=== PATIENT | female | born 1935 | race Caucasian/White ===

== ENCOUNTER 2017-05-16 05:48 | Day surgery (SDC) | payer MEDICARE ==
[2017-05-16] MEDS ORDERED: Ketamine HCl 50 MG/ML IV ONE (05:49)
[2017-05-16] MEDS ORDERED: DIPRIVAN 200 MG/20 ML IV ONE (05:49)
[2017-05-16] MEDS ORDERED: Lactated Ringers 1,000 ML IV ONE (06:29)
[2017-05-16] MEDS ORDERED: Lactated Ringers 1,000 ML IV SCH (07:00)
--- NOTE | 2017-05-16 10:08 | OP ---
SURGERY DATE/TIME: 05/16/2017 0748 PREOPERATIVE DIAGNOSIS: Epigastric pain. POSTOPERATIVE DIAGNOSIS: Mild gastritis. PROCEDURE: Esophagogastroduodenoscopy with biopsy. SURGEON: Dr. Pearce. ANESTHESIA: Medications were given by the anesthesia department. BRIEF HISTORY: The patient is an 82 year old white female patient presenting for epigastric pain. She was felt the need to have endoscopic evaluation. She was appraised of the risks of the procedure including the risk of perforation, phlebitis, untoward reaction to medication, bleeding and missed lesions. The patient verbalized her understanding and desired to have the procedure performed. DESCRIPTION OF PROCEDURE: The patient was given the medications by the anesthesia department. She had continuous pulse oximetry, ECG monitoring, intermittent blood pressure monitoring and tidal CO2 monitoring during the examination. She was placed in the left lateral decubitus position. A bite block was placed. The flexible Olympus gastroscope was used to intubate the oropharynx. A view of the esophagus was developed and was normal throughout its length. The stomach was entered where normal gastric rugal folds were seen and these distended nicely with insufflation of air. The scope was passed along the greater curvature of the stomach to the antrum. The pylorus was encountered and intubated. The duodenum inspected and found to be mildly erythematous but otherwise normal. The scope was withdrawn towards the stomach. A retroflex view was obtained of the lesser curvature, fundus and cardia regions of the stomach and these appeared to be normal. The scope was then redirected towards the gastric antrum. Biopsies were obtained to rule out the presence of Helicobacter pylori-type organisms. The scope was then removed from the patient who tolerated the procedure well and was sent back to outpatient recovery in good condition.
[2017-05-16 10:16] VITALS: BP 145/63; PULSE 67; O2SAT 97
== END 2017-05-16 09:40 | disposition home or self-care (01) ==
LOC: SDC 05:48
PROVIDERS: ATTEND Family Medicine
PROC: 0DB78ZX Excision of Stomach, Pylorus, Via Natural or Artificial Opening Endoscopic, Diagnostic (ICD-10-PCS; principal; 2017-05-16)
DX: K29.70 Gastritis, unspecified, without bleeding (principal); I10 Essential (primary) hypertension; E78.5 Hyperlipidemia, unspecified; K21.9 Gastro-esophageal reflux disease without esophagitis
CPT/HCPCS: 00740; 36415; 88305; 99100; J2704

== ENCOUNTER 2017-07-12 14:47 | Observation (INO) | payer MEDICARE ==
[2017-07-12] MEDS ORDERED: NovoLOG Insulin SQ PRN (15:17)
[2017-07-12] MEDS ORDERED: MORPHINE SULFATE 4 MG INJ IV PRN (15:19)
[2017-07-12] MEDS ORDERED: Zofran 4 MG/2 ML VIAL IV PRN (15:19)
[2017-07-12] MEDS: Sodium Chloride 0.9% 1000 ML 1,000 ML IV SCH (15:43)
[2017-07-12] MEDS: Protonix 40MG Tablet PO SCH (15:46)
[2017-07-12] MEDS ORDERED: NON-FORMULARY ITEM (Benazepril Hcl [Lotensin] 40 MG) PO SCH (22:00)
[2017-07-12] MEDS: Lotensin 10 MG PO SCH (22:02)
[2017-07-13] MEDS: Sodium Chloride 0.9% 1000 ML 1,000 ML IV SCH ×3 (01:24→18:40)
[2017-07-13 06:02] LABS: Mean Cell Volume 92.8 fl (78-100); Mean Corpuscular Hemoglobin 29.4 pg (26-32); Mean Platelet Volume 11.1 fl (6-9.5); Platelet Count 225 K/mm3 (150-450); Red Blood Count 4.15 M/mm3 (4.1-5.4); Red Cell Distribution Width 13.8 % (11.5-14.0); White Blood Count 7.9 K/mm3 (4.0-10.5)
[2017-07-13 06:26] LABS: ALBUMIN 3.2 g/dL (3.4-5.0); ALKALINE PHOSPHATASE 98 U/L (46-116); ANION GAP 11.7 MEQ/L (5-15); BLOOD UREA NITROGEN 10 mg/dL (9-20); CHLORIDE 109 mEq/L (98-107); Carbon Dioxide 26.2 mEq/L (21-32); Glucose 106 MG/DL (70-110); LIPASE 1434 U/L (73-393); SGOT/AST 37 U/L (15-37); SGPT/ALT 76 U/L (12-78); SODIUM 143 mEq/L (136-145); Total Protein 6.6 gm/dL (6.4-8.2)
[2017-07-13] MEDS ORDERED: Sodium Chloride 0.9% 500 ML 500 ML IV SCH ×3 (08:30→17:00)
--- NOTE | 2017-07-13 08:33 | PCM.NOTE ---
Date and Time: 07/13/17 08 Subjective Assessment: Admitted from office yesterday after seeing that her LFTs and lipase were elevated. This morning her pain is much better, she has no pain right now in fact. Has not eaten yet; has no appetite but wants to try some food. C/o leg cramps last night. - Review of Systems Constitutional: No Fever Musculoskeletal: Other (leg cramps) Objective Exam General Appearance: no apparent distress, alert Neurologic Exam: oriented x 3, cooperative Skin Exam: normal color, warm, dry Respiratory Exam: normal breath sounds, lungs clear, No crackles/rales, No rhonchi, No wheezing Cardiovascular Exam: regular rate/rhythm, normal heart sounds, No murmur Gastrointestinal/Abdomen Exam: soft, normal bowel sounds, No tenderness, No distention, No mass Extremity Exam: No pedal edema, No swelling OBJECTIVE DATA Vital Signs: Vital Signs - 24 hr Temp Pulse Resp BP Pulse Ox 07/13/17 07:15 97.8 F 80 18 114/55 96 07/13/17 04:00 97.9 F 67 18 168/75 97 07/13/17 00:00 97.4 F 65 16 175/73 94 L 07/12/17 20:09 97.9 F 56 L 18 168/72 95 07/12/17 16:17 97.6 F 58 L 16 150/70 93 L 07/12/17 15:03 97.5 F 62 145/64 07/12/17 15:02 97.5 F 62 16 145/64 96 07/12/17 15:01 97.5 F 62 16 145/64 96 Pain Assessment - Last Documented Pain Scale Used 0-10 Pain Scale Intake and Output: Intake & Output 07/10/17 07/11/17 07/12/17 07/13/17 11:59 11:59 11:59 11:59 Intake Total 680 Output Total 1700 Balance -1020 Weight 65.726 kg Lab Results: Accuchecks Date 07/12/17 Date 07/12/17 Time 22:00 Time 16:30 Accucheck Value: 92 Accucheck Value: 131 Lab Results-Last 24 Hours 07/13/17 07/13/17 07/13/17 Range/Units 05:35 05:35 05:35 WBC 7.9 (4.0-10.5) K/mm3 RBC 4.15 (4.1-5.4) M/mm3 Hgb 12.2 (12.0-16.0) gm/dl Hct 38.5 (35-47) % MCV 92.8 (78-100) fl MCH 29.4 (26-32) pg MCHC 31.7 L (32-36) g/dl RDW 13.8 (11.5-14.0) % Plt Count 225 (150-450) K/mm3 MPV 11.1 H (6-9.5) fl Sodium 143 (136-145) mEq/L Potassium 4.0 (3.5-5.1) mEq/L Chloride 109 H (98-107) mEq/L Carbon Dioxide 26.2 (21-32) mEq/L Anion Gap 11.7 (5-15) MEQ/L BUN 10 (9-20) mg/dL Creatinine 0.91 (0.55-1.30) mg/dl Estimated GFR > 60 ML/MIN Glucose 106 (70-110) MG/DL Hemoglobin A1c 6.0 (4.5-6.2) Calcium 9.1 (8.5-10.1) mg/dL Total Bilirubin 0.50 (0.2-1.0) mg/dL AST 37 (15-37) U/L ALT 76 (12-78) U/L Alkaline Phosphatase 98 (46-116) U/L Serum Total Protein 6.6 (6.4-8.2) gm/dL Albumin 3.2 L (3.4-5.0) g/dL Amylase 138 H (25-115) U/L Lipase 1434 H (73-393) U/L Radiology Exams: Radiology Procedures Category Date Time Status ABDOMEN AND PELVIS W&WO CONTRA [CT] Routine Exams 07/12/17 16:00 Taken Assessment/Plan (1) Pancreatitis Current Visit: Yes Status: Acute Qualifiers: Chronicity: acute Pancreatitis type: biliary Acute pancreatitis complication: no infection or necrosis Qualified Code(s): K85.10 - Biliary acute pancreatitis without necrosis or infection Assessment & Plan: She has a history of gallstone removed post cholecystectomy (in 2008 at [facility]). She says these symtpoms are very similar. On CT her duct was enlarged. This morning her lipase is higher - will give bolus 500 cc NS x 3 throughout the day today and recheck labs in a.m. If she tolerated po very well and felt great she may be able to d/c home and f/u withoutpatient labs, but I think she will likely need to stay another day. Code(s): K85.90 - ACUTE PANCREATITIS WITHOUT NECROSIS OR INFECTION, UNSP (2) Vomiting Current Visit: Yes Status: Resolved Qualifiers: Vomiting type: unspecified Vomiting Intractability: non-intractable Nausea presence: with nausea Qualified Code(s): R11.2 - Nausea with vomiting, unspecified Code(s): R11.10 - VOMITING, UNSPECIFIED (3) Elevated liver enzymes Current Visit: Yes Status: Acute Assessment & Plan: Improved and nl this morning. Code(s): R74.8 - ABNORMAL LEVELS OF OTHER SERUM ENZYMES
--- NOTE | 2017-07-13 08:44 | XRAY ---
Indication: Abdominal pain after eating. Nausea and vomiting. Multiple contiguous axial images obtained through the abdomen and pelvis prior to and following 80 cc Isovue 370 contrast. Enteric contrast also given. Comparison: April 23, 2009. Lung bases demonstrate stable bibasilar calcified granuloma and minimal fibrosis/scarring. No infiltrate or effusion. Heart is not enlarged. There is now small hiatal hernia. Images through the pelvis are again limited due to extreme beam artifact from bilateral hip prostheses. Noncontrasted images through the abdomen demonstrates tiny calcified splenic granuloma. No pathologic visceral calcifications/calculi. Contrasted stomach and bowel loops appear nonobstructed. Minimal sigmoid diverticulosis. Again previous reported appendectomy and cholecystectomy. Biliary tree remains distended with the common bile duct up to 17 mm. Postcontrast images demonstrates normal visceral enhancement and renal excretion. Interval enlarging right lower pole simple cyst today measuring 8.2 cm in greatest axial dimension, previously 5.5 cm. No solid renal mass, hydronephrosis, or hydroureter. Remaining liver, pancreas, spleen, adrenal glands, kidneys, ureters, bladder, and uterus appear unremarkable. There remains moderate aortoiliac calcifications. No AAA or pathologic retroperitoneal lymphadenopathy. Osseous structures intact again with moderate degenerative changes throughout the spine. Stable tiny fatty supraumbilical ventral hernia. Impression: 1. New hiatal hernia. 2. Stable biliary tree distention with cholecystectomy. 3. Enlarging simple appearing right renal cyst. 4. Stable sigmoid diverticulosis and tiny fatty ventral hernia. CT DI 20.85
[2017-07-13] MEDS: Imdur 30 MG PO SCH (08:57)
[2017-07-13] MEDS: Protonix 40MG Tablet PO SCH (08:57)
[2017-07-13] MEDS: Toprol Xl 50 MG PO SCH (08:58)
[2017-07-13] MEDS: NORVASC 5 MG PO SCH (08:58)
[2017-07-13] MEDS: Lotensin 10 MG PO SCH ×2 (08:58→21:18)
[2017-07-14] MEDS: Sodium Chloride 0.9% 1000 ML 1,000 ML IV SCH (04:37)
[2017-07-14 04:48] VITALS: O2SAT 94
[2017-07-14 05:27] LABS: Mean Cell Volume 92.6 fl (78-100); Mean Corpuscular Hemoglobin 29.7 pg (26-32); Mean Platelet Volume 10.9 fl (6-9.5); Platelet Count 235 K/mm3 (150-450); Red Blood Count 4.45 M/mm3 (4.1-5.4); Red Cell Distribution Width 13.9 % (11.5-14.0); White Blood Count 8.4 K/mm3 (4.0-10.5)
[2017-07-14 05:48] LABS: ALBUMIN 3.5 g/dL (3.4-5.0); ALKALINE PHOSPHATASE 106 U/L (46-116); ANION GAP 12.1 MEQ/L (5-15); BLOOD UREA NITROGEN 6 mg/dL (9-20); CHLORIDE 108 mEq/L (98-107); Carbon Dioxide 26.9 mEq/L (21-32); Glucose 111 MG/DL (70-110); LIPASE 933 U/L (73-393); Potassium 4.1 mEq/L (3.5-5.1); SGOT/AST 39 U/L (15-37); SGPT/ALT 73 U/L (12-78); SODIUM 143 mEq/L (136-145); Total Protein 7.3 gm/dL (6.4-8.2)
--- NOTE | 2017-07-14 05:57 | PCM.DS ---
Discharge Summary Date of Admission: 07/12/17 14:47 Date of Discharge: 07/14/17 Admitting Physician: KENYETTA HARRISON Primary Care Provider: KENYETTA HARRISON Allergies Allergies NSAIDS (Non-Steroidal Anti-Inflamma Allergy (Verified 05/11/17 15:41) sulfacetamide [From Sulfamide] Allergy (Verified 05/11/17 15:41) Hospital Summary - Hospital Course Hospital Course: presented to office with abd pain and found to have pancreatitis with concern for choledocholithiasis causing the pancreatitis. She has history of stone removal after a cholecystectomy in the past. After arrival at hospital however and getting iv hydration her pain and nausea have resolved and she is tolerating po. Her lipase and lft's are improving and she really wants discharged to home because she states she is feeling much better. We discussed concern for possible bile duct stone vs ampullary stenosis resulting in the pancreatitis but with improvign symptoms will d/c to home and f /u outpatient with gastroenterology for consideration at [facility] vs [facility] if having recurrent symptoms and f/u liver enzymes. - Vitals & Intake/Output Vital Signs: Vital Signs Temperature 99.5 F 07/14/17 04:00 Pulse Rate 67 07/14/17 04:00 Respiratory Rate 16 07/14/17 04:00 Blood Pressure 186/84 07/14/17 04:00 O2 Sat by Pulse Oximetry 94 L 07/14/17 04:00 Intake & Output: Intake & Output 07/11/17 07/12/17 07/13/17 07/14/17 11:59 11:59 11:59 11:59 Intake Total 1040 1500 Output Total 2800 3950 Balance -1760 -2450 Weight 65.726 kg - Lab Result Diagrams: 07/14/17 05:15 07/14/17 05:15 Lab Results-Last 24 Hrs: Accuchecks Date 07/13/17 Date 07/13/17 Date 07/13/17 Date 07/13/17 Time 16:30 Time 11:30 Time 07:30 Accucheck Value: 86 Accucheck Value: 93 Accucheck Value: 94 Lab Results-Last 24 Hours 07/13/17 07/13/17 07/13/17 Range/Units 05:35 05:35 05:35 WBC 7.9 (4.0-10.5) K/mm3 RBC 4.15 (4.1-5.4) M/mm3 Hgb 12.2 (12.0-16.0) gm/dl Hct 38.5 (35-47) % MCV 92.8 (78-100) fl MCH 29.4 (26-32) pg MCHC 31.7 L (32-36) g/dl RDW 13.8 (11.5-14.0) % Plt Count 225 (150-450) K/mm3 MPV 11.1 H (6-9.5) fl Sodium 143 (136-145) mEq/L Potassium 4.0 (3.5-5.1) mEq/L Chloride 109 H (98-107) mEq/L Carbon Dioxide 26.2 (21-32) mEq/L Anion Gap 11.7 (5-15) MEQ/L BUN 10 (9-20) mg/dL Creatinine 0.91 (0.55-1.30) mg/dl Estimated GFR > 60 ML/MIN Glucose 106 (70-110) MG/DL Hemoglobin A1c 6.0 (4.5-6.2) Calcium 9.1 (8.5-10.1) mg/dL Total Bilirubin 0.50 (0.2-1.0) mg/dL AST 37 (15-37) U/L ALT 76 (12-78) U/L Alkaline Phosphatase 98 (46-116) U/L Serum Total Protein 6.6 (6.4-8.2) gm/dL Albumin 3.2 L (3.4-5.0) g/dL Amylase 138 H (25-115) U/L Lipase 1434 H (73-393) U/L 07/14/17 07/14/17 Range/Units 05:15 05:15 WBC 8.4 (4.0-10.5) K/mm3 RBC 4.45 (4.1-5.4) M/mm3 Hgb 13.2 (12.0-16.0) gm/dl Hct 41.2 (35-47) % MCV 92.6 (78-100) fl MCH 29.7 (26-32) pg MCHC 32.0 (32-36) g/dl RDW 13.9 (11.5-14.0) % Plt Count 235 (150-450) K/mm3 MPV 10.9 H (6-9.5) fl Sodium 143 (136-145) mEq/L Potassium 4.1 (3.5-5.1) mEq/L Chloride 108 H (98-107) mEq/L Carbon Dioxide 26.9 (21-32) mEq/L Anion Gap 12.1 (5-15) MEQ/L BUN 6 L (9-20) mg/dL Creatinine 0.89 (0.55-1.30) mg/dl Estimated GFR > 60 ML/MIN Glucose 111 H (70-110) MG/DL Hemoglobin A1c (4.5-6.2) Calcium 9.4 (8.5-10.1) mg/dL Total Bilirubin 0.60 (0.2-1.0) mg/dL AST 39 H (15-37) U/L ALT 73 (12-78) U/L Alkaline Phosphatase 106 (46-116) U/L Serum Total Protein 7.3 (6.4-8.2) gm/dL Albumin 3.5 (3.4-5.0) g/dL Amylase (25-115) U/L Lipase 933 H (73-393) U/L Micro Results-Entire Visit: Accuchecks Date 07/13/17 Date 07/13/17 Date 07/13/17 Date 07/13/17 Time 16:30 Time 11:30 Time 07:30 Accucheck Value: 86 Accucheck Value: 93 Accucheck Value: 94 - Radiology Exams Ordered Rad Exams-Entire Visit: Radiology Procedures Category Date Time Status ABDOMEN AND PELVIS W&WO CONTRA [CT] Routine Exams 07/12/17 16:00 Completed Discharge Exam General Appearance: no apparent distress, alert, obese Neurologic Exam: alert, oriented x 3, cooperative, normal mood/affect, nml cerebellar function, sensation nml, No motor deficits Skin Exam: normal color, warm, dry Eye Exam: PERRL, EOMI, eyes nml inspection Ears, Nose, Throat Exam: normal ENT inspection, pharynx normal, moist mucous membranes Neck Exam: normal inspection, non-tender, supple, full range of motion Respiratory Exam: normal breath sounds, lungs clear, No respiratory distress Cardiovascular Exam: regular rate/rhythm, normal heart sounds Gastrointestinal/Abdomen Exam: soft, No tenderness, No mass Extremity Exam: normal inspection, normal range of motion Back Exam: normal inspection, normal range of motion, No CVA tenderness, No vertebral tenderness Pelvic Exam: deferred Rectal Exam: deferred Final Diagnosis/Problem List - Final Discharge Diagnosis/Problem (1) Elevated liver enzymes Status: Acute (2) Pancreatitis Status: Acute (3) Vomiting Status: Resolved - Discharge Discharge Date: 07/14/17 Disposition: Home, Self-Care Condition: Stable Prescriptions: New PANTOPRAZOLE 40 mg Tablet [Protonix 40MG Tablet] 40 mg PO DAILY #30 tab Continue Multivitamin [Daily Multivitamin] 1 tab PO DAILY Magnesium Oxide 400 mg [Mag-Ox 400] 400 mg PO BID Benazepril HCl [Lotensin] 40 mg PO BID Isosorbide Mononitrate 30 mg [Imdur 30 MG] 15 mg PO DAILY Metoprolol Succinate 50 mg [Toprol Xl 50 MG] 50 mg PO DAILY Furosemide [Lasix] 20 mg PO BID Rosuvastatin Calcium [Crestor] 10 mg PO 2XW Amlodipine Besylate [Norvasc] 5 mg PO DAILY Instructions: Pancreatitis Additional Instructions: ok for home after breakfast if pain stays resolved and nausea continues to be controlled Follow up with: KENYETTA HARRISON [Primary Care Provider] - 07/24/17 10:45 am CARLITOS VALDEZ MD [NON-STAFF PHY W/O PRIVILEGES] - 1 Week ([phone]) Forms: Discharge Instructions
[2017-07-14 07:50] VITALS: BP 189/77; PULSE 73
[2017-07-14] MEDS: Protonix 40MG Tablet PO SCH (10:01)
[2017-07-14] MEDS: NORVASC 5 MG PO SCH (10:01)
[2017-07-14] MEDS: Imdur 30 MG PO SCH (10:01)
[2017-07-14] MEDS: Toprol Xl 50 MG PO SCH (10:01)
[2017-07-14] MEDS: Lotensin 10 MG PO SCH (10:01)
== END 2017-07-14 11:00 | disposition home or self-care (01) ==
LOC: MED SURG 14:47
PROVIDERS: ADMIT Family Medicine; ATTEND Family Medicine
DX: R74.8 Abnormal levels of other serum enzymes (principal); K85.90 Acute pancreatitis without necrosis or infection, unspecified; R11.10 Vomiting, unspecified; R25.2 Cramp and spasm; E11.9 Type 2 diabetes mellitus without complications
CPT/HCPCS: 36415; 74178; 80053; 82150; 82962; 83036; 83690; 85027; G0378; A9270-GY

== ENCOUNTER 2021-07-18 12:52 | Emergency (ER) | payer MEDICARE ==
[2021-07-18] MEDS ORDERED: Zofran 4 MG/2 ML VIAL IV ONE (13:28)
[2021-07-18] MEDS ORDERED: MORPHINE SULFATE 2 MG INJ IV ONE (13:28)
--- NOTE | 2021-07-18 13:28 | ERPHSYRPT ---
- History of Present Illness Time Seen by Provider: 07/18/21 13:15 Historian: patient, EMS Exam Limitations: no limitations Patient Subjective Stated Complaint: abd pain, NV x 1 episode Triage Nursing Assessment: pt to ED by EMS c/o epigastric pain and NV x 1 episode today. reports pain began after eating small breakfast. states "I dont have much pain now that I got to throw that up." epigastric region tender to palp on assessment. denies urinary problems, LBM yesterday which was normal to pt. Physician History: This is an 86-year-old white female patient of Dr. Oli Madrid who has a history of hypertension, gastroesophageal reflux disease and elevated cholesterol who was feeling fine until after eating a small breakfast of a roll this morning when she began to experience epigastric abdominal discomfort and associated vomiting x1. She denies chest pain. She states that she is never had this before. She did take her medications this morning. Patient was brought into the emergency department by EMS service. She denies fever. She denies diarrhea. Patient has had a cholecystectomy in the past. Timing/Duration: today Quality: aching Abdominal Pain Onset Location: epigastric Pain Radiation: no radiation Severity of Pain-Max: moderate Severity of Pain-Current: mild Modifying Factors: Improves With: nothing Associated Symptoms: nausea, vomiting Previous symptoms: no prior history Allergies/Adverse Reactions: NSAIDS (Non-Steroidal Anti-Inflamma Allergy (Verified 07/18/21 13:05) sulfacetamide [From Sulfamide] Allergy (Verified 07/18/21 13:05) Home Medications: Benazepril HCl [Lotensin] 40 mg PO BID 09/07/14 [History] Furosemide [Lasix] 20 mg PO BID 09/07/14 [History] Isosorbide Mononitrate 30 mg [Imdur 30 MG] 15 mg PO DAILY 09/07/14 [History] Magnesium Oxide 400 mg [Mag-Ox 400] 400 mg PO BID 09/07/14 [History] Metoprolol Succinate 50 mg [Toprol Xl 50 MG] 50 mg PO DAILY 09/07/14 [History] Multivitamin [Daily Multivitamin] 1 tab PO DAILY 09/07/14 [History] Rosuvastatin Calcium [Crestor] 10 mg PO 2XW 05/11/17 [History] Amlodipine Besylate [Norvasc] 5 mg PO DAILY 07/12/17 [History] Hx Tetanus, Diphtheria Vaccination/Date Given: Yes Hx Influenza Vaccination/Date Given: Yes Hx Pneumococcal Vaccination/Date Given: No Immunizations Up to Date: Yes Travel Risk - International Travel Have you traveled outside of the country in past 3 weeks: No - Coronavirus Screening Are you exhibiting any of the following symptoms?: Yes Symptoms: Vomiting/Diarrhea Close contact with a COVID-19 positive Pt in past 14-21 Days: No - Vaccine Status Have you recieved a Covid-19 vaccination: Yes Special Crimes Investigator: Moderna - Vaccination Dates Date of 2cond Vaccination (if applicable): Oct - Review of Systems Constitutional: No Symptoms Eyes: No Symptoms Ears, Nose, & Throat: No Symptoms Respiratory: No Symptoms Cardiac: No Symptoms Abdominal/Gastrointestinal: Abdominal Pain, Nausea, Vomiting, No Diarrhea Genitourinary Symptoms: No Symptoms (Epigastric) Musculoskeletal: No Symptoms Skin: No Symptoms Neurological: No Symptoms Psychological: No Symptoms Endocrine: No Symptoms Hematologic/Lymphatic: No Symptoms Immunological/Allergic: No Symptoms All Other Systems: Reviewed and Negative - Past Medical History Pertinent Past Medical History: Yes Neurological History: No Pertinent History ENT History: Cataracts Cardiac History: High Cholesterol, Hypertension Respiratory History: No Pertinent History Endocrine Medical History: No Pertinent History Musculoskeletal History: Fractures GI Medical History: GERD History: No Pertinent History Psycho-Social History: No Pertinent History Female Reproductive Disorders: No Pertinent History Other Medical History: B ALIYA - Past Surgical History Past Surgical History: Yes Neuro Surgical History: No Pertinent History Cardiac: No Pertinent History Respiratory: No Pertinent History Gastrointestinal: Appendectomy, Cholecystectomy Genitourinary: Other Musculoskeletal: Orthopedic Surgery Female Surgical History: No Pertinent History Other Surgical History: SALVADOR CATARACT SURGERY. COLON REDUCTION. BLADDER PATCH. BOTH HIPS REPLACED - Social History Smoking Status: Never smoker Exposure to second hand smoke: No Drug Use: none Patient Lives Alone: Yes - Female History Hx Now: No - Nursing Vital Signs Nursing Vital Signs: Initial Vital Signs Temperature 96.7 F 07/18/21 12:54 Pulse Rate 56 L 07/18/21 12:54 Respiratory Rate 20 07/18/21 12:54 Blood Pressure 115/59 07/18/21 12:54 O2 Sat by Pulse Oximetry 99 07/18/21 12:54 Pain Scale Pain Intensity 1 - Physical Exam General Appearance: no apparent distress Eye Exam: PERRL/EOMI, eyes nml inspection Ears, Nose, Throat Exam: normal ENT inspection, moist mucous membranes Neck Exam: normal inspection, non-tender, supple, full range of motion Respiratory Exam: normal breath sounds, lungs clear, airway intact, No chest tenderness, No respiratory distress Cardiovascular Exam: regular rate/rhythm, normal heart sounds, normal peripheral pulses Gastrointestinal/Abdomen Exam: soft, normal bowel sounds, tenderness, guarding (Epigastric area with palpation epigastric area with palpation), No rebound Pelvic Exam: not done Rectal Exam: not done Back Exam: normal inspection, normal range of motion, No CVA tenderness, No vertebral tenderness Extremity Exam: normal inspection, normal range of motion, pelvis stable Neurologic Exam: alert, oriented x 3, cooperative, powdered sugar supervisor II-XII nml as tested, normal mood/affect, nml cerebellar function, nml station & gait, sensation nml Skin Exam: normal color, warm, dry Lymphatic Exam: No adenopathy SpO2 Interpretation: normal SpO2: 99 O2 Delivery: Room Air - Course Nursing assessment & vital signs reviewed: Yes EKG Interpreted by Me: RATE (66), Sinus Rhythm, NORMAL AXIS, Left Bundle Branch Block, Other (Prolonged MD interval. No comparison EKG available. There is no acute ischemic changes on today's EKG.) Ordered Tests: Active Orders 24 hr Category Date Time Status EKG-ER Only STAT Care 07/18/21 13:28 Active IV Insertion STAT Care 07/18/21 13:28 Active ABDOMEN AND PELVIS W/0 CONTRAS [CT] Stat Exams 07/18/21 13:28 Taken AMYLASE Stat Lab 07/18/21 13:30 Completed CBC W DIFF Stat Lab 07/18/21 13:30 Completed CMP Stat Lab 07/18/21 13:30 Completed LIPASE Stat Lab 07/18/21 13:30 Completed Lactic Acid Stat Lab 07/18/21 13:33 Completed Lactic Acid Stat Lab 07/18/21 15:39 Received TROPONIN Q3H Lab 07/18/21 13:30 Completed TROPONIN Q3H Lab 07/18/21 16:30 Ordered TROPONIN Q3H Lab 07/18/21 19:30 Ordered TROPONIN Q3H Lab 07/18/21 22:30 Ordered TROPONIN Q3H Lab 07/19/21 01:30 Ordered UA W/RFX UR CULTURE Stat Lab 07/18/21 13:30 Completed Medication Summary Generic Name Dose Route Start Last Admin Trade Name Marta PRN Reason Stop Dose Admin Sodium Chloride 1,000 mls @ 250 mls/hr 07/18/21 13:30 07/18/21 13:34 Sodium Chloride 0.9% 1000 Ml IV 08/17/21 13:29 250 mls/hr .Q4H SERJIO Administration Discontinued Medications Generic Name Dose Route Start Last Admin Trade Name Marta PRN Reason Stop Dose Admin Morphine Sulfate 2 mg 07/18/21 13:28 07/18/21 13:37 Morphine Sulfate 2 Mg/Ml Inj IV 07/18/21 13:29 2 mg STAT ONE Administration Morphine Sulfate Confirm 07/18/21 13:32 Morphine Sulfate 2 Mg/Ml Inj Administered 07/18/21 13:33 Dose 2 mg .ROUTE .STK-MED ONE Ondansetron HCl 4 mg 07/18/21 13:28 07/18/21 13:36 Ondansetron Hcl 4 Mg/2 Ml Vial IV 07/18/21 13:29 4 mg STAT ONE Administration Ondansetron HCl Confirm 07/18/21 13:32 Ondansetron Hcl 4 Mg/2 Ml Vial Administered 07/18/21 13:33 Dose 4 mg .ROUTE .STK-MED ONE Lab/Rad Data: Laboratory Result Diagrams 07/18/21 13:30 07/18/21 13:30 Laboratory Results 07/18/21 07/18/21 07/18/21 Range/Units 13:33 13:30 13:30 WBC (4.0-10.5) K/mm3 RBC (4.1-5.4) M/mm3 Hgb (12.0-16.0) gm/dl Hct (35-47) % MCV (78-100) fl MCH (26-32) pg MCHC (32-36) g/dl RDW (11.5-14.0) % Plt Count (150-450) K/mm3 MPV (7.5-11.0) fl Gran % (36.0-66.0) % Eos # (Auto) (0-0.5) Absolute Lymphs (auto) (1.0-4.6) Absolute Monos (auto) (0.0-1.3) Lymphocytes % (24.0-44.0) % Monocytes % (0.0-12.0) % Eosinophils % (0.00-5.0) % Basophils % (0.0-0.4) % Absolute Granulocytes (1.4-6.9) Basophils # (0-0.4) Sodium 141 (137-145) mmol/L Potassium 4.3 (3.5-5.1) mmol/L Chloride 104 (98-107) mmol/L Carbon Dioxide 25 (22-30) mmol/L Anion Gap 16.4 H (5-15) MEQ/L BUN 26 H (7-17) mg/dL Creatinine 0.86 (0.52-1.04) mg/dL Estimated GFR > 60.0 ML/MIN Glucose 138 H (74-106) mg/dL Lactic Acid 2.1 H (0.4-2.0) Calcium 10.6 H (8.4-10.2) mg/dL Total Bilirubin 0.60 (0.2-1.3) mg/dL AST 76 H (14-36) U/L ALT 32 (0-35) U/L Alkaline Phosphatase 79 (38-126) U/L Troponin I < 0.012 (0.000-0.034) ng/mL Serum Total Protein 7.2 (6.3-8.2) g/dL Albumin 4.2 (3.5-5.0) g/dL Amylase 69 (30-110) U/L Lipase 174 (23-300) U/L Urine Color (YELLOW) Urine Appearance (CLEAR) Urine pH (5-6) Ur Specific [place] (1.005-1.025) Urine Protein (Negative) Urine Ketones (NEGATIVE) Urine Blood (0-5) Arie/ul Urine Nitrite (NEGATIVE) Urine Bilirubin (NEGATIVE) Urine Urobilinogen (0-1) mg/dL Ur Leukocyte Esterase (NEGATIVE) Urine WBC (Auto) (0-5) /HPF Urine RBC (Auto) (0-2) /HPF U Epithel Cells (Auto) (FEW) /HPF Urine Bacteria (Auto) (NEGATIVE) /HPF Urine Mucus (Auto) (NEGATIVE) /HPF Urine Culture Reflexed (NO) Urine Glucose (NEGATIVE) mg/dL 07/18/21 07/18/21 Range/Units 13:30 13:30 WBC 13.0 H (4.0-10.5) K/mm3 RBC 4.54 (4.1-5.4) M/mm3 Hgb 13.6 (12.0-16.0) gm/dl Hct 42.6 (35-47) % MCV 93.8 (78-100) fl MCH 30.0 (26-32) pg MCHC 31.9 L (32-36) g/dl RDW 13.3 (11.5-14.0) % Plt Count 241 (150-450) K/mm3 MPV 11.1 H (7.5-11.0) fl Gran % 69.1 H (36.0-66.0) % Eos # (Auto) 0.24 (0-0.5) Absolute Lymphs (auto) 2.89 (1.0-4.6) Absolute Monos (auto) 0.81 (0.0-1.3) Lymphocytes % 22.3 L (24.0-44.0) % Monocytes % 6.3 (0.0-12.0) % Eosinophils % 1.9 (0.00-5.0) % Basophils % 0.4 (0.0-0.4) % Absolute Granulocytes 8.97 H (1.4-6.9) Basophils # 0.05 (0-0.4) Sodium (137-145) mmol/L Potassium (3.5-5.1) mmol/L Chloride (98-107) mmol/L Carbon Dioxide (22-30) mmol/L Anion Gap (5-15) MEQ/L BUN (7-17) mg/dL Creatinine (0.52-1.04) mg/dL Estimated GFR ML/MIN Glucose (74-106) mg/dL Lactic Acid (0.4-2.0) Calcium (8.4-10.2) mg/dL Total Bilirubin (0.2-1.3) mg/dL AST (14-36) U/L ALT (0-35) U/L Alkaline Phosphatase (38-126) U/L Troponin I (0.000-0.034) ng/mL Serum Total Protein (6.3-8.2) g/dL Albumin (3.5-5.0) g/dL Amylase (30-110) U/L Lipase (23-300) U/L Urine Color OMEGA (YELLOW) Urine Appearance CLOUDY (CLEAR) Urine pH 6.0 (5-6) Ur Specific [place] 1.021 (1.005-1.025) Urine Protein 30 (Negative) Urine Ketones NEGATIVE (NEGATIVE) Urine Blood NEGATIVE (0-5) Arie/ul Urine Nitrite NEGATIVE (NEGATIVE) Urine Bilirubin NEGATIVE (NEGATIVE) Urine Urobilinogen NEGATIVE (0-1) mg/dL Ur Leukocyte Esterase SMALL (NEGATIVE) Urine WBC (Auto) 3-5 (0-5) /HPF Urine RBC (Auto) 0-2 (0-2) /HPF U Epithel Cells (Auto) RARE (FEW) /HPF Urine Bacteria (Auto) NONE (NEGATIVE) /HPF Urine Mucus (Auto) SLIGHT (NEGATIVE) /HPF Urine Culture Reflexed NO (NO) Urine Glucose NEGATIVE (NEGATIVE) mg/dL - Progress Progress: improved, re-examined Progress Note: 07/18/21 15:11 CAT scan of the abdomen and pelvis without contrast shows no acute intra- abdominal or intrapelvic abnormality or process. 07/18/21 15:47 Patient states that she is feeling much better. Counseled pt/family regarding: lab results, diagnosis, need for follow-up, rad results - Departure Departure Disposition: Home Clinical Impression: Epigastric discomfort Condition: Stable Critical Care Time: No Referrals: KENYETTA LOPEZ [Primary Care Provider] - Additional Instructions: Drink plenty of clear liquids before advancing diet. Avoid fatty greasy spicy f oods. Call your primary care physician tomorrow morning to make arrangements for follow-up appointment. Take all your medications as prescribed. Prescriptions: Ondansetron ODT 4 MG [Zofran Odt 4 mg] 4 mg PO Q6H PRN PRN #10 tablet PRN Reason: Vomiting
[2021-07-18] MEDS ORDERED: Sodium Chloride 0.9% 1000 ML 1,000 ML IV SCH (13:30)
[2021-07-18] MEDS ORDERED: Sodium Chloride 0.9% 1000 ML 1,000 ML ONE (13:32)
[2021-07-18] MEDS ORDERED: Zofran 4 MG/2 ML VIAL ONE (13:32)
[2021-07-18] MEDS ORDERED: MORPHINE SULFATE 2 MG INJ ONE (13:32)
[2021-07-18 13:43] LABS: Absolute Neutrophil Ct (ANC) 8.97 (1.4-6.9); BASOPHIL % 0.4 % (0.0-0.4); Basophil (Absolute #) 0.05 (0-0.4); Eosinophil % 1.9 % (0.00-5.0); Eosinophil (Absolute #) 0.24 (0-0.5); Hematocrit 42.6 % (35-47); Hemoglobin 13.6 gm/dl (12.0-16.0); Lymphocyte (Absolute #) 2.89 (1.0-4.6); Lymphocytes % 22.3 % (24.0-44.0); Mean Cell Volume 93.8 fl (78-100); Mean Corpuscular Hgb Concent. 31.9 g/dl (32-36); Mean Platelet Volume 11.1 fl (7.5-11.0); Monocyte (Absolute #) 0.81 (0.0-1.3); Monocytes % 6.3 % (0.0-12.0); Neutrophil % 69.1 % (36.0-66.0); Platelet Count 241 K/mm3 (150-450); Red Blood Count 4.54 M/mm3 (4.1-5.4); Red Cell Distribution Width 13.3 % (11.5-14.0)
[2021-07-18 13:54] LABS: ALBUMIN 4.2 g/dL (3.5-5.0); ALKALINE PHOSPHATASE 79 U/L (38-126); AMYLASE 69 U/L (30-110); ANION GAP 16.4 MEQ/L (5-15); BLOOD UREA NITROGEN 26 mg/dL (7-17); CHLORIDE 104 mmol/L (98-107); Calcium 10.6 mg/dL (8.4-10.2); Carbon Dioxide 25 mmol/L (22-30); Creatinine 1 0.86 mg/dL (0.52-1.04); EST GLOMERULAR FILTRATION RATE > 60.0 ML/MIN; Glucose 138 mg/dL (74-106); LIPASE 174 U/L (23-300); Potassium 4.3 mmol/L (3.5-5.1); SGOT/AST 76 U/L (14-36); SGPT/ALT 32 U/L (0-35); SODIUM 141 mmol/L (137-145); Total Protein 7.2 g/dL (6.3-8.2)
[2021-07-18 15:30] LABS: Appearance CLOUDY (CLEAR); Bilirubin NEGATIVE (NEGATIVE); Blood NEGATIVE Ery/ul (0-5); Epithelial Cells RARE /HPF (FEW); Glucose NEGATIVE (NEGATIVE); Ketones NEGATIVE (NEGATIVE); Leukocyte Esterase SMALL (NEGATIVE); Mucus SLIGHT /HPF (NEGATIVE); Nitrite NEGATIVE (NEGATIVE); Protein,Urine Dip 30 (Negative); RBC 0-2 /HPF (0-2); Specific Gravity 1.021 (1.005-1.025); Urobilinogen NEGATIVE mg/dL (0-1)
[2021-07-18 15:52] VITALS: BP 116/68; PULSE 54; O2SAT 96
--- NOTE | 2021-07-18 18:41 | XRAY ---
Indication: Epigastric pain and vomiting. Multiple contiguous axial images obtained through the abdomen and pelvis without contrast. Comparison: July 12, 2017. Lung bases again demonstrates tiny calcified granuloma. No infiltrate or effusion. Heart not enlarged. Stable small hiatal hernia. Images through the pelvis again limited by extreme beam artifact from bilateral hip prostheses. Noncontrasted stomach and bowel loops remain nonobstructed. Again minimal sigmoid diverticulosis without diverticulitis. Stable tiny splenic calcified granulomas, large right renal cyst, appendectomy, and cholecystectomy. No free fluid/air. Remaining liver, pancreas, spleen, adrenal glands, kidneys, ureters, bladder, and aorta appear grossly unremarkable for noncontrast exam. Again mild scattered aortoiliac calcifications without AAA. Osseous structures intact again with osteopenia and mild/moderate degenerative changes throughout the thoracolumbar spine. Stable tiny fatty supraumbilical ventral hernia. Impression: 1. Stable small hiatal hernia, large right renal cyst, sigmoid diverticulosis, tiny fatty ventral hernia, chronic bony findings, and old granulomatous disease. 2. Remaining CT abdomen/pelvis without contrast exam is negative. Comment: Preliminary interpretation made by C. No critical discrepancy.
== END 2021-07-18 15:55 | disposition home or self-care (01) ==
LOC: ED 12:52
DX: R10.13 Epigastric pain (principal)
CPT/HCPCS: 36000; 36415; 74176; 80053; 81001; 82150; 83605; 83690; 84484; 85025; 93005; 96374; 96375; 99284; J2270; J2405

== ENCOUNTER 2022-01-07 10:48 | Emergency (ER) | payer MEDICARE ==
--- NOTE | 2022-01-07 11:52 | XRAY ---
Indication: Pain 3 weeks per no known injury. Comparison: None 3 portable views left knee demonstrates osteopenia, moderate tricompartmental degenerative changes, small nonspecific effusion, and moderate scattered vascular calcifications. No other bony, articular, or soft tissue abnormalities.
--- NOTE | 2022-01-07 11:52 | ERPHSYRPT ---
- History of Present Illness Source: patient, other (Daughter) Patient Subjective Stated Complaint: Left knee pain x1 week. Triage Nursing Assessment: AAox3, c/o left knee pain and swelling to medial aspect of knee for past approx week. Denies known injury. States fell asleep in chair 2 weeks ago and fell forward onto floor and states could be reason for knee pain. Denies other inuries. Increased to with wt bearing. Physician History: 86 yo wf w L knee pain x 1 week. Pt states that she had a ground level fall 2 wks ago, but the pain just started 1 wk ago. Pain is worse w weight bearing and is isolated to her knee joint. Although the knee is edematous, she has no calf/thigh pain/edema. Pt denies fever/chest pain/dyspnea. Method of Injury: fell (2 wks ago but pain just started 1 wk ago) Quality: aching Severity of Pain-Max: severe Severity of Pain-Current: moderate Lower Extremities Pain: knee: left Modifying Factors: Improves With: movement Associated Symptoms: other (Minimal weight bearing) Allergies/Adverse Reactions: NSAIDS (Non-Steroidal Anti-Inflamma Allergy (Verified 07/18/21 13:05) sulfacetamide [From Sulfamide] Allergy (Verified 07/18/21 13:05) Home Medications: Benazepril HCl [Lotensin] 40 mg PO BID 09/07/14 [History] Furosemide [Lasix] 20 mg PO BID 09/07/14 [History] Isosorbide Mononitrate 30 mg [Imdur 30 MG] 15 mg PO DAILY 09/07/14 [History] Magnesium Oxide 400 mg [Mag-Ox 400] 400 mg PO BID 09/07/14 [History] Metoprolol Succinate 50 mg [Toprol Xl 50 MG] 50 mg PO DAILY 09/07/14 [History] Multivitamin [Daily Multivitamin] 1 tab PO DAILY 09/07/14 [History] Rosuvastatin Calcium [Crestor] 10 mg PO 2XW 05/11/17 [History] Amlodipine Besylate [Norvasc] 5 mg PO DAILY 07/12/17 [History] Hx Tetanus, Diphtheria Vaccination/Date Given: No Hx Influenza Vaccination/Date Given: Yes Hx Pneumococcal Vaccination/Date Given: Yes Immunizations Up to Date: Yes Travel Risk - International Travel Have you traveled outside of the country in past 3 weeks: No - Coronavirus Screening Are you exhibiting any of the following symptoms?: No Close contact with a COVID-19 positive Pt in past 14-21 Days: No - Vaccine Status Have you recieved a Covid-19 vaccination: Yes Eeg Technician: Moderna - Vaccination Dates Date of 2cond Vaccination (if applicable): oct 2020 - Review of Systems Constitutional: No Symptoms Eyes: No Symptoms Ears, Nose, & Throat: No Symptoms Respiratory: No Symptoms Cardiac: No Symptoms Abdominal/Gastrointestinal: No Symptoms Genitourinary Symptoms: No Symptoms Skin: No Symptoms Neurological: No Symptoms Psychological: No Symptoms Endocrine: No Symptoms Hematologic/Lymphatic: No Symptoms Immunological/Allergic: No Symptoms - Past Medical History Pertinent Past Medical History: Yes Neurological History: No Pertinent History ENT History: Cataracts Cardiac History: High Cholesterol, Hypertension Respiratory History: No Pertinent History Endocrine Medical History: No Pertinent History Musculoskeletal History: Fractures GI Medical History: GERD History: No Pertinent History Psycho-Social History: No Pertinent History Female Reproductive Disorders: No Pertinent History Other Medical History: B ALIYA - Past Surgical History Past Surgical History: Yes Neuro Surgical History: No Pertinent History Cardiac: No Pertinent History Respiratory: No Pertinent History Gastrointestinal: Appendectomy, Cholecystectomy Genitourinary: Other Musculoskeletal: Orthopedic Surgery Female Surgical History: No Pertinent History Other Surgical History: SALVADOR CATARACT SURGERY. COLON REDUCTION. BLADDER PATCH. BOTH HIPS REPLACED - Social History Smoking Status: Never smoker Exposure to second hand smoke: No Drug Use: none Patient Lives Alone: Yes Significant Family History: no pertinent family hx - Nursing Vital Signs Nursing Vital Signs: Initial Vital Signs Temperature 98.3 F 01/07/22 11:05 Pulse Rate 64 01/07/22 11:05 Respiratory Rate 16 01/07/22 11:05 Blood Pressure 147/52 01/07/22 11:05 O2 Sat by Pulse Oximetry 97 01/07/22 11:05 Pain Scale Pain Intensity 8 Hypertensive - Physical Exam General Appearance: no apparent distress Eyes, Ears, Nose, Throat Exam: normal ENT inspection, TMs normal, pharynx normal, moist mucous membranes Neck Exam: normal inspection, non-tender, supple, full range of motion, No Brudzinski, No Kernig's, No meningismus, No carotid bruit Cardiovascular/Respiratory Exam: normal breath sounds, regular rate/rhythm, heart sounds normal Gastrointestinal/Abdominal Exam: non-tender, soft Back Exam: normal inspection, normal range of motion, No CVA tenderness Hips Exam: bilateral: non-tender, normal inspection, normal range of motion, no evidence of injury Legs Exam: bilateral leg: non-tender, normal inspection, normal range of motion, no evidence of injury Knees Exam: left knee: pain (TTP medial joint line), swelling (Edema of L knee which is worse on medial side) Ankle Exam: bilateral ankle: non-tender, normal inspection, normal range of motion, no evidence of injury Foot Exam: bilateral foot: non-tender, normal inspection, normal range of motion, no evidence of injury DTR - Lower Extremities Exam: knee (R): 2+, knee (L): 2+ Neuro/Tendon Exam: normal sensation, normal motor functions, normal tendon functions, responds to pain, no evidence tendon injury, No motor deficit, No sensory deficit Mental Status Exam: alert, oriented x 3, cooperative Skin Exam: normal color, warm, dry, No rash SpO2 Interpretation: normal SpO2: 97 O2 Delivery: Room Air - Course Nursing assessment & vital signs reviewed: Yes - Radiology Exams Knee X-ray Interpretation: Discussed w/ radiologist (ADA) Ordered Tests: Active Orders 24 hr Category Date Time Status Faisal Bandage Application -[facility] STAT Care 01/07/22 13:51 Completed KNEE (3 VIEWS) Stat Exams 01/07/22 11:40 Completed ESR [Erythrocyte Sedimentation Rate] Stat Lab 01/07/22 12:16 Completed Uric Acid Stat Lab 01/07/22 12:16 Completed Lab/Rad Data: Laboratory Results 01/07/22 01/07/22 Range/Units 12:16 12:16 ESR 11 (0-20) mm/hr Uric Acid 7.0 H (2.6-6.0) mg/dL - Progress Progress Note: 01/07/22 13:52 Pt refused all pain meds during stay Pt most likely has gout vs DJD. Pt unable to take NSAIDS, and daughter refuses [place] at this time. She would prefer to try steroids and use tylenol for pain. Faisal wrap L knee per nursing/NVI. Counseled pt/family regarding: lab results, diagnosis, need for follow-up, rad results - Departure Departure Disposition: Home Clinical Impression: Gout, Arthritis Condition: Stable Critical Care Time: No Referrals: KENYETTA LOPEZ [Primary Care Provider] - Follow up/PCP as directed [place] - KYARA CARRION NP [NON-STAFF PHY W/O PRIVILEGES] - Follow up/PCP as directed Instructions: Gout (DC), Knee Pain (DC) Additional Instructions: follow up with the orthopedic clinic M-Fr 8-10:00 AM Weight bearing as tolerated Tylenol for pain Prednisone once a day for 3 days Prescriptions: Prednisone 10 mg [Deltasone 10 mg] 10 mg PO DAILY 3 Days #3 tablet
[2022-01-07 14:03] VITALS: BP 149/65; PULSE 50
[2022-01-07 19:54] VITALS: O2SAT 97
== END 2022-01-07 14:08 | disposition home or self-care (01) ==
LOC: ED 10:48
DX: M10.9 Gout, unspecified (principal); M17.12 Unilateral primary osteoarthritis, left knee; M25.562 Pain in left knee; R60.0 Localized edema; E78.5 Hyperlipidemia, unspecified; I10 Essential (primary) hypertension; Z79.52 Long term (current) use of systemic steroids; Z79.899 Other long term (current) drug therapy
CPT/HCPCS: 36415; 73562; 84550; 85652; 99284

== ENCOUNTER 2022-04-12 14:00 | Emergency (ER) | payer MEDICARE ==
--- NOTE | 2022-04-12 14:06 | ERPHSYRPT ---
- History of Present Illness Time Seen by Provider: 04/12/22 14:05 Historian: patient Exam Limitations: no limitations Physician History: This is an 87-year-old white female who does live alone and was brought into the emergency department because of sudden onset of epigastric pain that occurred after eating lunch today. Patient states that the pain is sharp and radiated to under her left breast. Patient has had a cholecystectomy and appendectomy in the past. Patient was seen here back in June 2021 with complaints of diarrhea and some abdominal pain. Patient has a history of elevated cholesterol, hypertension, coronary artery disease and gastroesophageal reflux disease. Patient denies chest pain. She does not have any shortness of breath. Patient denies nausea vomiting and diarrhea Timing/Duration: today Activities at Onset: none Quality: sharpness Abdominal Pain Onset Location: epigastric Pain Radiation: other (Left breast, lower ribs on the left) Severity of Pain-Max: moderate Severity of Pain-Current: mild (To moderate) Modifying Factors: Improves With: nothing Associated Symptoms: denies symptoms Previous symptoms: no prior history Allergies/Adverse Reactions: NSAIDS (Non-Steroidal Anti-Inflamma Allergy (Verified 04/12/22 14:08) sulfacetamide [From Sulfamide] Allergy (Verified 04/12/22 14:08) Home Medications: Benazepril HCl [Lotensin] 40 mg PO BID 09/07/14 [History] Furosemide [Lasix] 20 mg PO BID 09/07/14 [History] Isosorbide Mononitrate 30 mg [Imdur 30 MG] 15 mg PO DAILY 09/07/14 [History] Magnesium Oxide 400 mg [Mag-Ox 400] 400 mg PO BID 09/07/14 [History] Metoprolol Succinate 50 mg [Toprol Xl 50 MG] 50 mg PO DAILY 09/07/14 [History] Multivitamin [Daily Multivitamin] 1 tab PO DAILY 09/07/14 [History] Rosuvastatin Calcium [Crestor] 10 mg PO 2XW 05/11/17 [History] Amlodipine Besylate [Norvasc] 5 mg PO DAILY 07/12/17 [History] Hx Tetanus, Diphtheria Vaccination/Date Given: No Hx Influenza Vaccination/Date Given: Yes Hx Pneumococcal Vaccination/Date Given: Yes Travel Risk - International Travel Have you traveled outside of the country in past 3 weeks: No - Coronavirus Screening Are you exhibiting any of the following symptoms?: No Close contact with a COVID-19 positive Pt in past 14-21 Days: No - Vaccine Status Have you recieved a Covid-19 vaccination: Yes [employer]: Moderna - Vaccination Dates Date of 2cond Vaccination (if applicable): oct 2020 - Review of Systems Constitutional: No Symptoms Eyes: No Symptoms Ears, Nose, & Throat: No Symptoms Respiratory: No Symptoms Cardiac: No Symptoms Abdominal/Gastrointestinal: Abdominal Pain (Epigastric) Genitourinary Symptoms: No Symptoms Musculoskeletal: No Symptoms Skin: No Symptoms Neurological: No Symptoms Psychological: No Symptoms Endocrine: No Symptoms Hematologic/Lymphatic: No Symptoms Immunological/Allergic: No Symptoms All Other Systems: Reviewed and Negative - Past Medical History Pertinent Past Medical History: Yes Neurological History: No Pertinent History ENT History: Cataracts Cardiac History: High Cholesterol, Hypertension Respiratory History: No Pertinent History Endocrine Medical History: No Pertinent History Musculoskeletal History: Fractures GI Medical History: GERD History: No Pertinent History Psycho-Social History: No Pertinent History Female Reproductive Disorders: No Pertinent History Other Medical History: B ALIYA - Past Surgical History Past Surgical History: Yes Neuro Surgical History: No Pertinent History Cardiac: No Pertinent History Respiratory: No Pertinent History Gastrointestinal: Appendectomy, Cholecystectomy Genitourinary: Other Musculoskeletal: Orthopedic Surgery Female Surgical History: No Pertinent History Other Surgical History: SALVADOR CATARACT SURGERY. COLON REDUCTION. BLADDER PATCH. BOTH HIPS REPLACED - Social History Smoking Status: Never smoker Exposure to second hand smoke: No Drug Use: none Patient Lives Alone: Yes Significant Family History: no pertinent family hx - Nursing Vital Signs Nursing Vital Signs: Initial Vital Signs Pulse Rate 60 04/12/22 15:00 Respiratory Rate 18 04/12/22 15:00 Blood Pressure 137/67 04/12/22 15:00 O2 Sat by Pulse Oximetry 98 04/12/22 15:00 Pain Scale Pain Intensity 0 - Physical Exam General Appearance: no apparent distress, alert, anxiety Eye Exam: PERRL/EOMI, eyes nml inspection Ears, Nose, Throat Exam: normal ENT inspection, moist mucous membranes Neck Exam: normal inspection, non-tender, supple, full range of motion Respiratory Exam: normal breath sounds, lungs clear, airway intact, No chest tenderness, No respiratory distress Cardiovascular Exam: regular rate/rhythm, normal heart sounds, normal peripheral pulses Gastrointestinal/Abdomen Exam: soft, normal bowel sounds, tenderness (Mild epigastric tenderness with palpation), No guarding, No rebound Pelvic Exam: not done Rectal Exam: not done Back Exam: normal inspection, normal range of motion, No CVA tenderness, No vertebral tenderness Extremity Exam: normal inspection, normal range of motion, pelvis stable Neurologic Exam: alert, oriented x 3, cooperative, insurance plan specialist II-XII nml as tested, normal mood/affect, nml cerebellar function, nml station & gait, sensation nml Skin Exam: normal color, warm, dry Lymphatic Exam: No adenopathy SpO2 Interpretation: normal O2 Delivery: Room Air - Course Nursing assessment & vital signs reviewed: Yes EKG Interpreted by Me: RATE (54), Sinus Rhythm, NORMAL AXIS, NORMAL QRS, NORMAL ST-T, Other (A few PVCs present. There is prolonged TX interval. There is no acute ischemic changes on today's EKG. There is no significant changes on today's EKG when compared to the twelve-lead EKG performed on 07/18/2021) Ordered Tests: Active Orders 24 hr Category Date Time Status IV Insertion STAT Care 04/12/22 14:31 Active ABDOMEN AND PELVIS W/0 CONTRAS [CT] Stat Exams 04/12/22 14:31 Completed AMYLASE Stat Lab 04/12/22 15:10 Completed CBC W DIFF Stat Lab 04/12/22 15:10 Completed CMP Stat Lab 04/12/22 15:10 Completed LIPASE Stat Lab 04/12/22 15:10 Completed Lactic Acid Stat Lab 04/12/22 14:31 Completed TROPONIN Q3H Lab 04/12/22 15:10 Completed TROPONIN Q3H Lab 04/12/22 17:45 Ordered TROPONIN Q3H Lab 04/12/22 20:45 Ordered TROPONIN Q3H Lab 04/12/22 23:45 Ordered TROPONIN Q3H Lab 04/13/22 02:45 Ordered UA W/RFX CULTURE Stat Lab 04/12/22 17:36 Completed Medication Summary Discontinued Medications Generic Name Dose Route Start Last Admin Trade Name Freq PRN Reason Stop Dose Admin Morphine Sulfate 2 mg 04/12/22 15:15 04/12/22 15:31 Morphine Sulfate 2 Mg/Ml Inj IV 04/12/22 15:16 2 mg STAT ONE Administration Morphine Sulfate Confirm 04/12/22 15:30 Morphine Sulfate 2 Mg/Ml Inj Administered 04/12/22 15:31 Dose 2 mg .ROUTE .STK-MED ONE Ondansetron HCl 4 mg 04/12/22 15:15 04/12/22 15:31 Ondansetron Hcl 4 Mg/2 Ml Vial IV 04/12/22 15:16 4 mg STAT ONE Administration Ondansetron HCl Confirm 04/12/22 15:30 Ondansetron Hcl 4 Mg/2 Ml Vial Administered 04/12/22 15:31 Dose 4 mg .ROUTE .STK-MED ONE Pantoprazole Sodium 40 mg 04/12/22 14:31 04/12/22 14:46 Pantoprazole 40 Mg Vial IV 04/12/22 14:32 40 mg STAT ONE Administration Pantoprazole Sodium Confirm 04/12/22 14:45 Pantoprazole 40 Mg Vial Administered 04/12/22 14:46 Dose 40 mg IV .STK-MED ONE Lab/Rad Data: Laboratory Result Diagrams 04/12/22 15:10 04/12/22 15:10 Laboratory Results 04/12/22 04/12/22 04/12/22 Range/Units 17:36 15:10 15:10 WBC (4.0-10.5) x10^3/uL RBC (4.1-5.4) x10^6/uL Hgb (12.0-16.0) g/dL Hct (35-47) % MCV (78-100) fL MCH (26-32) pg MCHC (32-36) g/dL RDW (11.5-14.0) % Plt Count (150-450) x10^3/uL MPV (7.5-11.0) fL Gran % (36.0-66.0) % Immature Gran % (Auto) (0.00-0.4) % Nucleat RBC Rel Count (0.00-0.1) % Eos # (Auto) (0-0.5) x10^3/uL Immature Gran # (Auto) (0.00-0.03) x10^3u/L Absolute Lymphs (auto) (1.0-4.6) x10^3/uL Absolute Monos (auto) (0.0-1.3) x10^3/uL Absolute Nucleated RBC (0.00-0.01) x10^3u/L Lymphocytes % (24.0-44.0) % Monocytes % (0.0-12.0) % Eosinophils % (0.00-5.0) % Basophils % (0.0-0.4) % Absolute Granulocytes (1.4-6.9) x10^3/uL Basophils # (0-0.4) x10^3/uL Sodium 136 L (137-145) mmol/L Potassium 4.7 (3.5-5.1) mmol/L Chloride 107 (98-107) mmol/L Carbon Dioxide 22 (22-30) mmol/L Anion Gap 12.2 (5-15) MEQ/L BUN 31 H (7-17) mg/dL Creatinine 1.12 H (0.52-1.04) mg/dL Estimated GFR 48.7 ML/MIN Glucose 133 H (74-106) mg/dL Lactic Acid (0.4-2.0) Calcium 10.0 (8.4-10.2) mg/dL Total Bilirubin 0.70 (0.2-1.3) mg/dL AST 112 H (14-36) U/L ALT 45 H (0-35) U/L Alkaline Phosphatase 95 (38-126) U/L Troponin I < 0.012 (0.000-0.034) ng/mL Serum Total Protein 7.5 (6.3-8.2) g/dL Albumin 4.0 (3.5-5.0) g/dL Amylase 104 (30-110) U/L Lipase 236 (23-300) U/L Urinalys Dipstick Clnc MAIN LAB Urine Color YELLOW (YELLOW) Urine Appearance CLEAR (CLEAR) Urine pH 8.0 (5-6) Ur Specific [place] 1.020 (1.005-1.025) POC Urine Protein Conf 30 (Negative) Urine Ketones TRACE (NEGATIVE) Urine Nitrite NEGATIVE (NEGATIVE) Urine Bilirubin NEGATIVE (NEGATIVE) Urine Urobilinogen 0.2 (0-1) mg/dL Urine Leukocytes NEGATIVE (NEGATIVE) Urine WBC (Auto) NONE (0-5) /HPF Urine RBC (Auto) 0-2 (0-2) /HPF U Epithel Cells (Auto) NONE (FEW) /HPF Urine Bacteria (Auto) NONE (NEGATIVE) /HPF Urine RBC NEGATIVE (0-5) Arie/ul Urine Mucus (Auto) SLIGHT (NEGATIVE) /HPF Ur Culture Indicated? NO Urine Glucose NEGATIVE (NEGATIVE) mg/dL 04/12/22 04/12/22 Range/Units 15:10 14:31 WBC 15.1 H (4.0-10.5) x10^3/uL RBC 4.25 (4.1-5.4) x10^6/uL Hgb 12.9 (12.0-16.0) g/dL Hct 39.9 (35-47) % MCV 93.9 (78-100) fL MCH 30.4 (26-32) pg MCHC 32.3 (32-36) g/dL RDW 13.0 (11.5-14.0) % Plt Count 182 (150-450) x10^3/uL MPV 11.0 (7.5-11.0) fL Gran % 80.9 H (36.0-66.0) % Immature Gran % (Auto) 0.5 H (0.00-0.4) % Nucleat RBC Rel Count 0.0 (0.00-0.1) % Eos # (Auto) 0.11 (0-0.5) x10^3/uL Immature Gran # (Auto) 0.08 H (0.00-0.03) x10^3u/L Absolute Lymphs (auto) 1.52 (1.0-4.6) x10^3/uL Absolute Monos (auto) 1.13 (0.0-1.3) x10^3/uL Absolute Nucleated RBC 0.00 (0.00-0.01) x10^3u/L Lymphocytes % 10.0 L (24.0-44.0) % Monocytes % 7.5 (0.0-12.0) % Eosinophils % 0.7 (0.00-5.0) % Basophils % 0.4 (0.0-0.4) % Absolute Granulocytes 12.23 H (1.4-6.9) x10^3/uL Basophils # 0.06 (0-0.4) x10^3/uL Sodium (137-145) mmol/L Potassium (3.5-5.1) mmol/L Chloride (98-107) mmol/L Carbon Dioxide (22-30) mmol/L Anion Gap (5-15) MEQ/L BUN (7-17) mg/dL Creatinine (0.52-1.04) mg/dL Estimated GFR ML/MIN Glucose (74-106) mg/dL Lactic Acid 1.9 (0.4-2.0) Calcium (8.4-10.2) mg/dL Total Bilirubin (0.2-1.3) mg/dL AST (14-36) U/L ALT (0-35) U/L Alkaline Phosphatase (38-126) U/L Troponin I (0.000-0.034) ng/mL Serum Total Protein (6.3-8.2) g/dL Albumin (3.5-5.0) g/dL Amylase (30-110) U/L Lipase (23-300) U/L Urinalys Dipstick Clnc Urine Color (YELLOW) Urine Appearance (CLEAR) Urine pH (5-6) Ur Specific [place] (1.005-1.025) POC Urine Protein Conf (Negative) Urine Ketones (NEGATIVE) Urine Nitrite (NEGATIVE) Urine Bilirubin (NEGATIVE) Urine Urobilinogen (0-1) mg/dL Urine Leukocytes (NEGATIVE) Urine WBC (Auto) (0-5) /HPF Urine RBC (Auto) (0-2) /HPF U Epithel Cells (Auto) (FEW) /HPF Urine Bacteria (Auto) (NEGATIVE) /HPF Urine RBC (0-5) Arie/ul Urine Mucus (Auto) (NEGATIVE) /HPF Ur Culture Indicated? Urine Glucose (NEGATIVE) mg/dL - Progress Progress: improved, re-examined Progress Note: 04/12/22 17:53 CAT scan of the abdomen pelvis without contrast shows no acute intra-abdominal or intrapelvic findings. Medical decision making: This patient does not have an acute surgical abdomen. Her only complaint was epigastric pain. She has had no nausea vomiting or diarrhea. She may have a gastric ulcer or gastritis. She does have leukocytosis with it is unexplained. Her urinalysis does not show a urinary tract infection. I will cover her with Levaquin antibiotic since she does have leukocytosis with a left shift. The Levaquin will cover the urinary tract infection (undiagnosed) pulmonary infection if present. Patient is to follow-up with Dr. Oli Madrid tomorrow in the office by phone to make a follow-up appointment for further evaluation and management. Counseled pt/family regarding: lab results, diagnosis, need for follow-up, rad results - Departure Departure Disposition: Home Clinical Impression: Leukocytosis, Epigastric abdominal pain Condition: Stable Critical Care Time: No Referrals: KENYETTA LOPEZ [Primary Care Provider] - Follow up/PCP as directed Additional Instructions: Take your medication as prescribed. Drink plenty of fluids. Avoid fatty greasy spicy foods. Call Dr. Oli Madrid's office tomorrow to make arrangements for a follow-up appointment for further evaluation and management.
[2022-04-12] MEDS ORDERED: PROTONIX 40 MG IV IV ONE ×2 (14:31→14:45)
[2022-04-12 15:13] VITALS: PULSE 60
[2022-04-12] MEDS ORDERED: MORPHINE SULFATE 2 MG INJ IV ONE (15:15)
[2022-04-12] MEDS ORDERED: Zofran 4 MG/2 ML VIAL IV ONE (15:15)
[2022-04-12] MEDS ORDERED: Zofran 4 MG/2 ML VIAL ONE (15:30)
[2022-04-12] MEDS ORDERED: MORPHINE SULFATE 2 MG INJ ONE (15:30)
[2022-04-12 15:32] LABS: ANION GAP 12.2 MEQ/L (5-15); BILIRUBIN,TOTAL 0.7 mg/dL (0.2-1.3); Creatinine 1 1.12 mg/dL (0.52-1.04); EST GLOMERULAR FILTRATION RATE 48.7 ML/MIN; Potassium 4.7 mmol/L (3.5-5.1); Total Protein 7.5 g/dL (6.3-8.2)
[2022-04-12 15:35] LABS: Absolute Neutrophil Ct (ANC) 12.23 x10^3/uL (1.4-6.9); Basophil (Absolute #) 0.06 x10^3/uL (0-0.4); Eosinophil % 0.7 % (0.00-5.0); Eosinophil (Absolute #) 0.11 x10^3/uL (0-0.5); Hematocrit 39.9 % (35-47); Hemoglobin 12.9 g/dL (12.0-16.0); Lymphocyte (Absolute #) 1.52 x10^3/uL (1.0-4.6); Mean Cell Volume 93.9 fL (78-100); Mean Corpuscular Hemoglobin 30.4 pg (26-32); Mean Corpuscular Hgb Concent. 32.3 g/dL (32-36); Monocyte (Absolute #) 1.13 x10^3/uL (0.0-1.3); Monocytes % 7.5 % (0.0-12.0); Neutrophil % 80.9 % (36.0-66.0); Platelet Count 182 x10^3/uL (150-450); Red Blood Count 4.25 x10^6/uL (4.1-5.4); White Blood Count 15.1 x10^3/uL (4.0-10.5)
--- NOTE | 2022-04-12 16:29 | XRAY ---
Indication: Epigastric pain and nausea. Multiple contiguous axial images obtained through the abdomen and pelvis without contrast. Comparison: July 18, 2021 Lung bases demonstrate stable tiny bibasilar calcified granulomas. No infiltrate or effusion. Heart not enlarged. Again a few tiny right infrahilar calcified nodes. Stable small hiatal hernia. Pelvis again limited due to extreme beam artifact from bilateral total hip prosthesis. Stomach distended with food/fluid. Stable distal descending duodenal diverticulum. Noncontrasted stomach and bowel loops nonobstructed. Stable tiny splenic calcified granulomas, large right renal cyst, appendectomy, and cholecystotomy. No free fluid/air. Remaining liver, pancreas, spleen, adrenal glands, kidneys, ureters, bladder, and uterus unremarkable for noncontrast exam. Stable mild scattered aortoiliac calcifications without AAA. Osseous structures intact again with osteopenia and mild/moderate degenerative changes throughout the spine. Impression: 1. 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 2. Stable small hiatal hernia, duodenal diverticulum, large right renal cyst, chronic bony findings, and old granulomatous disease. 3. Remaining CT abdomen/pelvis without contrast exam is again negative.
[2022-04-12 17:07] VITALS: BP 142/60; O2SAT 99
[2022-04-12 17:44] LABS: Appearance CLEAR (CLEAR); Bilirubin NEGATIVE (NEGATIVE); Dipstick done @ ? MAIN LAB; Glucose NEGATIVE (NEGATIVE); Ketones TRACE (NEGATIVE); Nitrite NEGATIVE (NEGATIVE); Protein,Urine Dip 30 (Negative); RBC NEGATIVE Ery/ul (0-5); Urobilinogen 0.2 mg/dL (0-1)
[2022-04-12 17:46] LABS: Mucus SLIGHT /HPF (NEGATIVE); RBC 0-2 /HPF (0-2); Urine Cultured Indicated? NO
== END 2022-04-12 18:22 | disposition home or self-care (01) ==
LOC: ED 14:00
DX: R10.13 Epigastric pain (principal); D72.829 Elevated white blood cell count, unspecified; E78.5 Hyperlipidemia, unspecified; I10 Essential (primary) hypertension; Z79.899 Other long term (current) drug therapy
CPT/HCPCS: 36000; 36415; 74176; 80053; 81015; 82150; 83605; 83690; 84484; 85025; 96374; 96375; 99284; J2270; J2405